=== PATIENT | female | born 1990 | race African-American/Black ===

== ENCOUNTER 2017-04-09 04:20 | Emergency (ER) | payer OTHER ==
[~2017-04-09] VITALS: Ht 165.1 cm; Wt 61.2 kg
[2017-04-09] MEDS ORDERED: NAPROSYN500 MG PO (05:41)
[2017-04-09] MEDS ORDERED: LIORESAL 10 MG10 MG PO (05:41)
[2017-04-09] MEDS ORDERED: LIDODERM 5%1 PATC1 TRANSDERM (05:50)
[2017-04-09 06:05] VITALS: BP 132/86
== END 2017-04-09 06:06 | disposition home or self-care (01) ==
LOC: ER 04:20
DX: S16.1XXA Strain of muscle, fascia and tendon at neck level, initial encounter (principal); J45.909 Unspecified asthma, uncomplicated; V89.2XXA Person injured in unspecified motor-vehicle accident, traffic, initial encounter; Y93.I9 Activity, other involving external motion; Y92.89 Other specified places as the place of occurrence of the external cause; Y99.8 Other external cause status